=== PATIENT | female | born 1990 | race Caucasian/White ===

== ENCOUNTER 2019-09-14 02:03 | Emergency (ER) | payer BC ==
[~2019-09-14] VITALS: Ht 172.7 cm; Wt 86.2 kg
[2019-09-14] MEDS ORDERED: ATIVAN1 MG ORAL (02:17)
--- NOTE | 2019-09-14 02:17 | NUR ---
ED Nurse Note: Walk-in patient with complaints of abdominal pain x 4 hours with no relief after taking 1000mf tylenol. Blood speciment drawn and sent to lab. IV 20G started at right AC. Will continue to monitor for CT.
--- NOTE | 2019-09-14 02:26 | Emergency Room Report ---
History of Present Illness General Chief Complaint: Chest Pain Source: Patient Present Illness HPI This is a 28-year-old female with history of depression anxiety. She presents with initially chest pain but points toward the upper abdomen area. Pain been ongoing for last 3 to 4 hours. Pain is mostly localized to the right upper quadrant. Pain is sharp. Pain is 9 out of 10. Pain radiates to the back on the right side. She has nausea and vomiting. No diarrhea. Never had this problem before. Nothing made it better. Palpation made it worse. No urinary complaint. No diaphoresis. Allergies: Coded Allergies: No Known Allergies (Unverified , 09/14/19) COVID-19 Screening Contact w/high risk pt: No Recent Travel to affected area: No Experienced COVID-19 symptoms?: No Patient History Past Medical History: see triage record, old chart reviewed, psych hx Past Surgical History: none Pertinent Family History: none Social History: Denies: smoking Now: No Immunizations: other Reviewed Nursing Documentation: PMH: Agreed; PSxH: Agreed Nursing Documentation-PMH History Of Psychiatric Problem: Yes - Anxiety Review of Systems Eye: Denies: eye pain, blurred vision ENT: Denies: ear pain, nose congestion, throat swelling Respiratory: Denies: cough, shortness of breath Cardiovascular: Denies: chest pain, palpitations Gastrointestinal: Reports: abdominal pain, nausea, vomiting; Denies: diarrhea Musculoskeletal: Denies: back pain, joint pain Skin: Denies: rash Neurological: Denies: headache, numbness Endocrine: Denies: increased thirst, increased urine Hematologic/Lymphatic: Denies: easy bruising All Other Systems: negative except mentioned in HPI Physical Exam Vital Signs Date Time Temp Pulse Resp B/P (MAP) Pulse Ox O2 Delivery O2 Flow Rate FiO2 09/14/19 02:10 98.1 68 20 132/73 (92) 99 Room Air Vitals normal Sp02 EP Interpretation: reviewed, normal General Appearance: well appearing, no apparent distress, alert Head: normocephalic, atraumatic Eyes: bilateral eye PERRL, bilateral eye EOMI ENT: hearing grossly normal, normal pharynx Neck: full range of motion, supple, no meningismus Respiratory: chest non-tender, lungs clear, normal breath sounds Cardiovascular #1: regular rate, rhythm, no murmur Gastrointestinal: normal bowel sounds, no mass, no organomegaly, no bruit, non- distended, tenderness - Right upper quadrant Musculoskeletal: back normal, normal range of motion, gait/station normal Psychiatric: mood/affect normal Medical Decision Making Diagnostic Impression: Primary Impression: Biliary colic Additional Impression: Cholelithiasis Qualified Codes: K80.20 - Calculus of gallbladder without cholecystitis without obstruction ER Course This patient presents with right upper quadrant pain rating to the right inferior scapular area. This consistent with biliary colic. CT scan is negative. Gallbladder distended however in the CT scan. There is no evidence of any obstruction or cholecystitis or pancreatitis. Patient pain is well controlled. I see no need for emergent ultrasound. Will discharge home with follow-up. No evidence of an acute abdomen or obstruction. CT/MRI/US Diagnostic Results CT/MRI/US Diagnostic Results : Imaging Test Ordered: CT abdomen pelvis Impression Read by radiologist. No pancreatitis. No obstruction. Last Vital Signs Date Time Temp Pulse Resp B/P (MAP) Pulse Ox O2 Delivery O2 Flow Rate FiO2 09/14/19 02:10 98.1 68 20 132/73 (92) 99 Room Air Status: improved Disposition: HOME, SELF-CARE Condition: Stable Scripts Ibuprofen* (MOTRIN*) 600 Mg Tablet 600 MG ORAL Q8H PRN for FOR PAIN, #30 TAB 0 Refills Prov: Adriano Gamez MD 09/14/19 Hydrocodone/Acetaminophen 5-325* (HYDROCODONE/ACETAMINOPHEN 5-325*) 1 Each Tablet 1 TAB ORAL Q6H PRN for For Pain, #20 TAB 0 Refills Prov: Adriano Gamez MD 09/14/19 Referrals: NON PHYSICIAN (PCP) Additional Instructions: Follow-up with your doctor in 7 days. If pain continue, you may need an ultrasound and referred to see a surgeon. Return if symptoms worsen. Adriano Gamez MD Sep 14, 2019 02:26
[2019-09-14] MEDS ORDERED: Morphine Sulfate 4mg/ml Inj (IV USE ONLY) IVP ONE ×3 (02:30→04:45)
[2019-09-14] MEDS ORDERED: Ketorolac 30mg Inj IV ONE (02:30)
[2019-09-14 02:40] VITALS: BP 132/73
--- NOTE | 2019-09-14 02:45 | NUR ---
ED Nurse Note: Patient tolerated medication administration well. Will continue to monitor for collection of urine specimen.
--- NOTE | 2019-09-14 02:52 | NUR ---
ED Nurse Note: Patient able to ambulate with steady gait. urine specimen collected and taken down to lab. Will continue to monitor for CT and blood specimen results.
[2019-09-14 02:56] LABS: APPEARANCE,URINE CLEAR; BILIRUBIN, URINE NEGATIVE (NEGATIVE); GLUCOSE, URINE (UA) NEGATIVE (NEGATIVE); KETONES,URINE 2+ (NEGATIVE); LEUKOCYTE ESTERASE ,URINE NEGATIVE (NEGATIVE); NITRITE,URINE NEGATIVE (NEGATIVE); PH,URINE 7 (4.5-8.0); PROTEIN,URINE 1+ (NEGATIVE); UROBILINOGEN,URINE NORMAL MG/DL (0.0-1.0)
[2019-09-14 02:57] LABS: BASOPHILS % (AUTO) 0.5 % (0.0-2.0); EOSINOPHILS % (AUTO) 1.1 % (0.0-3.0); HEMOGLOBIN 14.1 G/DL (12.0-16.0); LYMPHOCYTES % (AUTO) 17.6 % (20.0-45.0); MEAN CORPUSCULAR VOLUME 81 FL (80-99); MONOCYTES % (AUTO) 3.4 % (1.0-10.0); NEUTROPHILS % (AUTO) 77.5 % (45.0-75.0); PLATELET COUNT 356 K/UL (150-450); RED CELL DISTRIBUTION WIDTH 10.8 % (11.6-14.8); WHITE BLOOD COUNT 16.2 K/UL (4.8-10.8)
[2019-09-14 02:58] LABS: ANION GAP 8 mmol/L (5-15); BLOOD UREA NITROGEN 15 mg/dL (7-18); CALCIUM 8.9 MG/DL (8.5-10.1); CARBON DIOXIDE 28 MMOL/L (21-32); CHLORIDE 101 MMOL/L (98-107); CREATININE 1.2 MG/DL (0.55-1.30); POTASSIUM 3.7 MMOL/L (3.5-5.1); SODIUM 137 MMOL/L (136-145)
[2019-09-14 02:59] LABS: COLOR,URINE YELLOW
[2019-09-14 03:03] LABS: ALANINE AMINOTRANSFERASE 25 U/L (12-78); ALBUMIN 3.6 G/DL (3.4-5.0); ALBUMIN/GLOBULIN RATIO 0.8 (1.0-2.7); ALKALINE PHOSPHATASE 103 U/L (46-116); ASPARTATE AMINO TRANSFERASE 14 U/L (15-37); BILIRUBIN,TOTAL 0.2 MG/DL (0.2-1.0)
--- NOTE | 2019-09-14 03:20 | NUR ---
ED Nurse Note: Patient requesting additional pain medication for recurrent pain. Will inform ERMd.
[2019-09-14] MEDS ORDERED: Morphine Sulfate 4mg/ml Inj (IV USE ONLY) ONE (03:34)
--- NOTE | 2019-09-14 03:35 | NUR ---
ED Nurse Note: Patient tolerated medication adminstration well. Will continue to monitor for decrease in pain.
--- NOTE | 2019-09-14 03:40 | NUR ---
ED Nurse Note: Patient going down with dialysis chief equipment technician for CT of the abdomen. Will continue to monitor for return.
--- NOTE | 2019-09-14 03:59 | NUR ---
ED Nurse Note: Patient returned from CT without complication accompanied by sales technician.
--- NOTE | 2019-09-14 04:32 | Diagnostic Imaging Report ---
Indication: Abdominal pain, chest pain progressing to the upper abdominal area for the last 3 to 4 hours, mostly in the right upper quadrant. 9 out of 10, radiating to the back. Nausea and vomiting Technique: Spiral acquisitions obtained through the abdomen and pelvis. No oral contrast utilized, per emergency room physician request. No IV contrast utilized, per emergency room physician request.. Multiplanar reconstructions were generated. Total dose length product 781 mGycm. CTDIvol(s) 12 mGy. Dose reduction achieved using automated exposure control Comparison: None Findings: Normal appendix. There is no evidence of colonic diverticulosis or diverticulitis. The distal esophagus, stomach, duodenum are unremarkable. No small bowel distention. No free or loculated intraperitoneal gas or fluid. There is a small fat-containing ventral hernia. There is a small fat-containing umbilical hernia. Lack of IV contrast limits assessment of the solid organs. The liver, gallbladder, bile ducts, pancreas, spleen, adrenals are unremarkable. There is a nonobstructive 3 mm calculus in the left renal collecting system. No ureteral calculi, hydronephrosis, or hydroureter. Unremarkable bladder. No pelvic mass or adenopathy. Uterus and ovaries appear unremarkable. The included lung bases are clear. The bones are unremarkable Impression: No acute abnormality Nonobstructive left renal calyceal calculus Incidental finding of small ventral and umbilical hernia hernia is that contain only fat This agrees with the preliminary interpretation provided overnight by [facility] teleradiology service. The CT scanner at [facility], [place] is accredited by the [employer] and the scans are performed using protocols designed to limit radiation exposure to as low as reasonably achievable to attain images of sufficient resolution adequate for diagnostic evaluation.
--- NOTE | 2019-09-14 04:45 | NUR ---
ED Nurse Note: Patient tolerated medication adminstration well. Will continue to monitor for discharge.
[2019-09-14] MEDS ORDERED: HYDROCODON-ACE1 EA15 ORAL (04:46)
[2019-09-14] MEDS ORDERED: IBUPROFEN600 M1 ORAL (04:46)
--- NOTE | 2019-09-14 04:55 | NUR ---
ER DISCHARGE NOTE: Patient is cleared to be discharged per ERMD, pt is aox4, on room air, with stable vital signs. pt was given dc and prescription instructions, pt was able to verbalize understanding, pt id band and iv site removed without complications. pt is able to ambulate with steady gait. pt took all belongings.
[2019-09-14 04:56] VITALS: BP 116/78
== END 2019-09-14 04:56 | disposition home or self-care (01) ==
LOC: EMR 02:22
DX: K80.50 Calculus of bile duct without cholangitis or cholecystitis without obstruction (principal); N20.0 Calculus of kidney; K80.20 Calculus of gallbladder without cholecystitis without obstruction; K43.9 Ventral hernia without obstruction or gangrene; K42.9 Umbilical hernia without obstruction or gangrene
CPT/HCPCS: 36415; 74176; 80053; 81003; 81025; 83690; 85025; 96361; 96374; 96375; 96376; 99284; J1885; J2270; J2405; J7030